=== PATIENT | male | born 1990 | race African-American/Black ===

== ENCOUNTER 2019-04-30 09:37 | Emergency (ER) | payer OTHER, SELFPAY ==
--- NOTE | ~2019-04-30 | XR_ITS ---
EXAMINATION: XR chest 2V EXAM DATE: 04/30/2019 10:58 INDICATION: GI symptoms. Vapes. TECHNIQUE: Frontal and lateral projections of the chest obtained and reviewed. There is no prior cathy dy for comparison. FINDINGS: The lungs are clear. There are no pleural effusions. The cardiomediastinal silhouette is within normal limits. There is no pneumothorax suspected. The bones and soft tissues are unremarkab le. IMPRESSION: Normal chest x-ray exam. Reviewed, dictated and finalized at location A. IMPRESSION: Normal chest x-ray exam.
[2019-04-30 10:07] VITALS: BP 127/78; PULSE 85; RESP 16; TEMP 36.7; O2SAT 99
[2019-04-30 10:20] LABS: Glucose Point of Care 106 (65-105)
--- NOTE | 2019-04-30 10:38 | ED.GENADULT ---
HPI - General Adult General Chief complaint: Urogenital-Male Stated complaint: Headache/Frequent urination Time Seen by Provider: 04/30/19 10:45 Source: patient and RN notes reviewed Mode of arrival: ambulatory Limitations: no limitations History of Present Illness HPI narrative: 28 old male presents with concern for 1 week history of abdominal pain, headache, diarrhea, frequent urination, increased thirst. He denies fever, chills, body aches, cough, sore throat, nasal congestion, rhinorrhea, hematuria, dysuria. He reports he smokes cigars and he vapes approximately twice weekly. He reports his headaches are intermittent and resolved with Tylenol. He reports he is currently not having abdominal pain. He reports family history of diabetes mellitus MD complaint: Diarrhea Related Data Allergies Allergy/AdvReac Type Severity Reaction Status Date / Time No Known Allergies Allergy Verified 04/30/19 10:00 Review of Systems Review of Systems: Narrative: CONSTITUTIONAL: Denies malaise, chills, sweats, or fever. EYES: Denies visual changes, redness, or discharge. ENT: Denies rhinorrhea, congestion, sinus pain, otalgia or sore throat. CARDIOVASCULAR: Denies chest pain, palpitations, or edema. RESPIRATORY: Denies cough or dyspnea. GASTROINTESTINAL: Reports history of abdominal pain, diarrhea. Denies nausea, vomiting, bloody, or mucous stools. GENITOURINARY: Denies dysuria or hematuria. Reports urine frequency SKIN: Denies rash or itching. MUSCULOSKELETAL: Denies back pain, joint pain, or myalgia. NEUROLOGIC: Denies numbness, weakness. Reports intermittent headache PSYCHIATRIC: Denies anxiety or depression. All systems reviewed & are unremarkable except as noted in HPI and below PMFSH Comments At time of signature, agree with nursing past medical, surgical, social and family history. There is no relevant family history pertinent to the presenting complaint Exam Narrative: Exam Narrative: GENERAL: Well-appearing, well-nourished, and in no acute distress. HEAD: Normocephalic, atraumatic. EYES: PERRLA, conjunctivae clear ENT: Nares clear, turbinates pink, no rhinorrhea or epistaxis. Mucous membranes moist. TM pearly chau with sharp light reflex bilaterally; no tragal tenderness. Oropharynx without erythema or lesions. Tonsils not enlarged and without exudate. NECK: Supple. No lymphadenopathy. CHEST: No respiratory distress. Clear to auscultation. No bony deformities, no asymmetry. Speaks in full sentences. HEART: Regular rate and rhythm. No murmur heard. Normal peripheral pulses. ABDOMEN: Soft, nontender, nondistended, normal active bowel sounds, no palpable masses. SKIN: Warm, dry, no rash. NEURO: Alert and oriented x3. No focal deficits. PSYCH: Normal mood and affect Course Course Emergency Course: Patient is aware of diagnosis, understands and agrees to treatment plan. Anticipatory guidance given. Patient agrees to follow-up as directed and is aware of reasons to seek care at the emergency department. Portions of this record may have been created with voice recognition software Vital Signs Vital signs: Vital Signs Temperature 98.0 F 04/30/19 10:07 Pulse Rate 85 04/30/19 10:07 Respiratory Rate 16 04/30/19 10:07 Blood Pressure 127/78 04/30/19 10:07 Pulse Oximetry 99 04/30/19 10:07 Temperature 98.0 F 04/30/19 10:07 Pulse Rate 85 04/30/19 10:07 Respiratory Rate 16 04/30/19 10:07 Blood Pressure 127/78 04/30/19 10:07 Pulse Oximetry 99 04/30/19 10:07 Reviewed. Medical Decision Making MDM Narrative Medical decision making narrative: Based on patient's living history, GI symptoms, obtained x-ray which was negative. Exam findings and labs show no acute concerns or changes; patient is non-toxic appearing and is in no distress. Patient is appropriate for outpatient treatment and follow-up. Vital Signs Vital Signs: Vital Signs Temperature 98.0 F 04/30/19 10:07 Pulse Rate 85 04/30/19 10:07
== END 2019-04-30 11:18 | disposition home or self-care (01) ==
PROVIDERS: Emergency Provider Nurse Practitioner
DX: R19.7 Diarrhea, unspecified (principal)
CPT/HCPCS: 71046; 81003; 82948; 99203; G0463

== ENCOUNTER 2019-05-04 11:23 | Emergency (ER) | payer OTHER, SELFPAY ==
[2019-05-04 11:38] VITALS: BP 115/64; PULSE 84; RESP 16; TEMP 36.3; O2SAT 99
--- NOTE | 2019-05-04 11:43 | ED.GENADULT ---
HPI - General Adult General Chief complaint: Unspecified Stated complaint: Diarrhea History of Present Illness HPI narrative: This is a 28-year-old male comes in complaining of having a history of gastroenteritis states that he was treated for it on Friday patient states that his symptoms have since resolved needs a note that he has been seen today and that he is feeling better. Related Data Home Medications Medication Instructions Recorded Confirmed No Home Medications 05/04/19 05/04/19 Allergies Allergy/AdvReac Type Severity Reaction Status Date / Time No Known Allergies Allergy Verified 05/04/19 11:42 Review of Systems Review of Systems: Narrative: CONSTITUTIONAL: Denies fever, chills, or sweats. EYES: Denies visual changes, redness, or discharge. ENT: Denies rhinorrhea, congestion, sore throat, or otalgia. CARDIOVASCULAR:Denies chest pain, palpitations, or edema. RESPIRATORY: Denies cough or dyspnea. GASTROINTESTINAL: Denies abdominal pain, nausea, vomiting, or diarrhea. GENITOURINARY: Denies dysuria or hematuria. SKIN:[Denies rash or itching. MUSCULOSKELETAL:Denies back pain, joint pain, or myalgia. NEUROLOGIC: Denies headache, numbness, or weakness. PSYCHIATRIC:Denies anxiety or depression Patient states he feels better PMFSH Social History Social History Gender identity (if verbalized by the patient): Male Comments At time as signature, I have reviewed and agree with nursing past medical, social, surgical and family history. Please see nursing chart for further information. There is no relevant family history pertinent to the presenting complaint. Exam Narrative: Exam Narrative: GENERAL:Well-appearing, well-nourished, and in no acute distress. HEAD:Normocephalic, atraumatic. EYES: PERRLA and EOMI. ENT: Nares clear, no rhinorrhea or epistaxis. Mucous membranes moist. NECK: Supple. CHEST: Clear to auscultation. No respiratory distress. HEART: Regular rate and rhythm. No murmur heard. Normal peripheral pulses. ABDOMEN: Soft, nontender, nondistended, normal active bowel sounds. EXTREMITIES: Normal range of motion. No edema. SKIN: Warm, dry, no rash. NEURO: No focal deficits. Alert and oriented x3. Essentially negative Course Vital Signs Vital signs: Vital Signs Temperature 97.3 F L 05/04/19 11:38 Pulse Rate 84 05/04/19 11:38 Respiratory Rate 16 05/04/19 11:38 Blood Pressure 115/64 05/04/19 11:38 Pulse Oximetry 99 05/04/19 11:38 Temperature 97.3 F L 05/04/19 11:38 Pulse Rate 84 05/04/19 11:38 Respiratory Rate 16 05/04/19 11:38 Blood Pressure 115/64 05/04/19 11:38 Pulse Oximetry 99 05/04/19 11:38 Medical Decision Making Vital Signs Vital Signs: Vital Signs Temperature 97.3 F L 05/04/19 11:38 Pulse Rate 84 05/04/19 11:38 Respiratory Rate 16 05/04/19 11:38 Blood Pressure 115/64 05/04/19 11:38 Pulse Oximetry 99 05/04/19 11:38 Temperature 97.3 F L 05/04/19 11:38 Pulse Rate 84 05/04/19 11:38 Respiratory Rate 16 05/04/19 11:38 Blood Pressure 115/64 05/04/19 11:38 Pulse Oximetry 99 05/04/19 11:38 Discharge Plan Discharge Clinical Impression: Gastroenteritis Patient Disposition: Home, Self-Care Condition: Stable Instructions: Antibiotic Form, Gastroenteritis (DC) Prescriptions: No Action No Home Medications RF: 0 Follow-up/Referrals: UNKNOWN,DOCTOR [Primary Care Provider] - Stand Alone Forms: Work/School Release IP Time of Disposition: 11:45
== END 2019-05-04 11:47 | disposition home or self-care (01) ==
PROVIDERS: Emergency Provider Nurse Practitioner Family
DX: K52.9 Noninfective gastroenteritis and colitis, unspecified (principal); F17.290 Nicotine dependence, other tobacco product, uncomplicated
CPT/HCPCS: 99211; G0463

== ENCOUNTER 2024-03-17 20:26 | Emergency (ER) | payer OTHER, SELFPAY ==
--- OUTSIDE RECORDS SUMMARY | 2024-03-17 20:28 | XMS_ITS | Clinical Summary ---
Author Organization [facility] Address [address] [place] [id number] Care Team Providers Care Production Expert Name Role Phone New Referring, Provider Primary Care Provider Un available Allergies No known active allergies Medications diclofenac EC 75 MG tablet Take 1 tablet (75 mg total) by mouth 2 (two) times daily. 60 tablet 05/09/2020 Active HYDROcodone-acet aminophen (NORCO) 5-325 MG tabletIndication s:Acute Pain < 3 Day Supply Take 1 tablet by mouth every 6 (six) hours as needed for Pain. Indications : Acute Pain < 3 Day Supply 12 tablet 10/30/2021 Active Immunizations Name Administration Dates Next Due Tdap (Boostrix) 10/30/2021 Social History Tobacco Use Types Packs/Day Years Used Date Smoking Tobacco: Never Smokeless Tobacco: Never Alcohol Use Standard Drinks/Week Comments Yes 0 (1 standard drink = 0.6 oz pur e alcohol) social AUDIT-C Answer Date Recorded Q1: How often do you have a drink containing alc ohol? Never 05/06/2020 Average Number of Drinks Not on file 021 Frequency of Binge Drinking Not on file 04/11 Sex and Gender Information Value Date Recorded Sex Assigned at Not on file Legal Sex Male 5:06 PM CDT Gender Identity Not on file Sexual Orientation Not on file Last Filed Vital Signs Vital Sign Reading Time Taken Comments Blood Pressure 120/76 10/30/2021 9:41 PM CDT Pulse 79 10/30/2021 9:41 PM CDT Temperature 36.8 C (98.2 F) 10/30/2021 9:41 PM CDT Respiratory Rate 18 10/30/2021 9:41 PM CDT Oxygen Saturation 99% 10/30/2021 9:41 PM CDT Inhaled Oxygen Concentration - - Weight 57.6 kg (127 lb) 10/30/2021 9:41 PM CDT Height 162.6 cm (5' 4 ) 10/30/2021 9:41 PM CDT Body Mass Index 21.8 10/30/2021 9:41 PM CDT Plan of Treatment Health Maintenance Due Date Last Done Comments Annual Physical 07/27/1995 Hepatitis C 2010 Hepatitis B Vaccines (1 of 3 - 19+ 3-dose series) 07/27/2011 COVID-19 Vaccine ( - 2023-25 season) 2023 Influenza Adult (#1) 2023 DTaP, Tdap and Td Vaccines (3 - Td or Tdap) 10/31/2031 10/30/2021, 05/23/1997, 09/02/1996, Additional history exists HPV Vaccines Aged Out No longer eligi ble based on patient's age to complete this topic Meningococcal B Vaccine Aged Out No l onger eligible based on patient's age to complete this topic Meningococcal Vaccine Aged Out No carmella baljeet eligible based on patient's age to complete this topic Pneumococcal Vaccine: Pediatrics (0 to 5 Years) and At-Risk Patients (6 to 64 Years) Aged Out No longer eligible based on patient's age to complete this topic RSV Immunizations Under 20 Months Aged Out No longer eligible based on patient's age to complete this topic Insurance MEDICAID [place] Advance Directives Documents on File Type Date Recorded 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
[2024-03-17 20:42] VITALS: BP 131/73; PULSE 85; RESP 20; TEMP 37.2; O2SAT 100
--- NOTE | 2024-03-17 22:30 | PC.NURSE ---
Patient called to triage for lab work. No answer.
--- NOTE | 2024-03-18 02:20 | PC.NURSE ---
Patient called to be taken into room. No answer.
--- OUTSIDE RECORDS SUMMARY | 2024-03-18 02:56 | XMS_ITS | Clinical Summary ---
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
== END 2024-03-17 22:30 | disposition left against medical advice (07) ==
DX: R10.9 Unspecified abdominal pain (principal)
CPT/HCPCS: 99199

== ENCOUNTER 2024-03-18 08:46 | Emergency (ER) | payer OTHER, SELFPAY ==
--- NOTE | 2024-03-18 08:59 | ED.WOUNDLAC ---
HPI - Wound/Laceration General Stated Complaint: Left Side Abdomen Wound Check Related Data Home Medications ?Medication ?Instructions ?Recorded ?Confirmed ?Last Taken ?Type No Home Medications 05/04/19 05/04/19 Unknown History Allergies Allergy/AdvReac Type Severity Reaction Status Date / Time No Known Allergies Allergy Verified 05/04/19 11:42 [facility] Social History Social History Gender identity (if verbalized by the patient): Male Discharge Plan Discharge Patient Language: Qatari Prescriptions: No Action No Home Medications Follow-up/Referrals: PHYSICIAN,REAL TIME ANALYST [Primary Care Provider] -
--- NOTE | 2024-03-18 09:03 | ED_ITS ---
HPI - Abdominal Pain General Stated Complaint: Left Side Abdomen Wound Check Time Seen by Provider: 03/18/24 09:00 Source: patient Mode of arrival: ambulatory Limitations: no limitations History of Present Illness HPI narrative: Eduar is a 33-year-old male patient presenting to the clinic today with complaints of left lower abdominal discomfort. He reports he was having a lot of abdominal discomfort last night when to the ER but left before being seen to to the wait x3 states that the abdominal discomfort is better this morning he still wanted to have it checked out. He denies any nausea, vomiting, or diar raquel. Did have a bowel movement this morning which was normal for him and he denies any pain during the bowel movement. States the area is a little irritable at this time but not as bad as it was. He denies any concern for STIs, penile discharge, or urinary symptoms. He denies any fevers, chills, body aches. No associated nausea or vomiting. Thinks he may have strained his abdominal wall muscle. Denies any testicular pain. Related Data Home Medications ?Medication ?Instructions ?Recorded ?Confirmed ?Last Taken ?Type No Home Medications 05/04/19 05/04/19 Unknown History Allergies Allergy/AdvReac Type Severity Reaction Status Date / Time No Known Allergies Allergy Verified 05/04/19 11:42 Review of Systems Review of Systems: Pertinent positives per HPI. Patient denies any fever, chills, rash, headache, visual changes, dizziness, cough, runny nose, sore throat, shortness of breath, chest pain, palpitations, nausea, vomiting, diarrhea, constipation, or any urinary issues. PMFSH Social History Social History Gender identity (if verbalized by the patient): Male Comments At the time of my signature, I reviewed and agree with the nursing past medical, surgical, social, and family history. There is no relevant family history pertinent to the patient complaint. Exam Narrative: General: Well-developed, well nourished, in no apparent distress. Head: Normocephalic, atraumatic. Cardio: Regular rate and rhythm, s1 and s2 normal, no murmur appreciated. Resp: Clear to auscultation bilaterally, no rhonchi, rales, wheezing or rubs. Abdomen: Soft, pliable, bowel sounds present in all quadrants, mild tender to palpation over the left lower abdomen/pelvis, no inguinal hernia or abdominal wall hernia, no organomegly, no CVAT tenderness. Course Course Emergency Course: Portions of this record may have been created with voice recognition software. Level of Care: Express Care Visit Vital Signs Vital signs: Vital signs reviewed MDM - Abdominal Pain MDM Narrative Medical decision making narrative: At the time of visit patient is resting comfortably on the exam table. Patient appears to be nontoxic. Plan: Patient reports that his left lower abdominal discomfort is improving. I think at this time it would be appropriate to observe as outpatient and have him follow-up with his primary care provider if symptoms persist or go to the emergency room if symptoms worsen. Supportive measures were discussed with the patient and they voiced understanding discharge instructions and agrees to treatment plan. Return precautions reviewed Differential Diagnosis Differential diagnosis: Likely abdominal pain, acute appendicitis, calculus of kidney, constipation, diverticulitis, gastroenteritis, pancreatitis and small bowel obstruction Discharge Plan Discharge Clinical Impression: LLQ abdominal pain Patient Disposition: Home, Self-Care Condition: Stable Instructions: Antibiotic Form, Abdominal Pain (ED) Additional Instructions: Increase fluids and stay well hydrated May take Tylenol/Motrin as needed for pain or fever May apply heating pad to the affected area to help alleviate pain Recommend follow-up with your primary care doctor in 2-3 days if symptoms persist or go to the emergency room if symptoms worsen Patient Language: Arabic Prescriptions: No Action No Home Medications Follow-up/Referrals: PHYSICIAN,INTEGRATIVE MEDICINE PHYSICIAN [Primary Care Provider] - Stand Alone Forms: Work/School Release IP Time of Disposition: 09:07 Quality NIHSS Nursing Documentation ED NIHSS nursing documentation: reviewed/agree
[2024-03-18 09:05] VITALS: BP 120/77; PULSE 88; RESP 20; TEMP 37.2; O2SAT 100
== END 2024-03-18 09:15 | disposition home or self-care (01) ==
PROVIDERS: Emergency Provider Nurse Practitioner Family
DX: R10.32 Left lower quadrant pain (principal); F17.290 Nicotine dependence, other tobacco product, uncomplicated
CPT/HCPCS: 99211; G0463